=== PATIENT | male | born 1985 | race Caucasian/White ===

== ENCOUNTER 2018-03-16 20:12 | Emergency (ER) | payer OTHER ==
[2018-03-16] MEDS ORDERED: Ketorolac Tromethamine 30 MG/ML VIAL ONE (20:28)
[2018-03-16 20:51] LABS: #Eosinphils 0.1 thou/uL (0.0-0.7); #Lymphocytes 2.4 thou/uL (1.20-3.40); #Monocytes 0.6 thou/uL (0.11-0.59); #Neutrophils 9.7 thou/uL (1.40-6.50); %Basophils 0.1 % (0.0-1.0); %Eosinophils 0.8 % (0.0-10.0); %Lymphocytes 18.6 % (21.0-51.0); %Monocytes 4.4 % (0.0-10.0); Hemoglobin 15.6 g/dL (14.0-18.0); Mean Corpuscular HGB CONC 34.4 g/dL (32.0-36.0); Mean Corpuscular Hemoglobin 31.4 pg (27.0-31.0); Mean Corpuscular Volume 91.3 fL (78.0-98.0); Platelet Count 320 thou/uL (130-400); RBC Distribution Width 11.4 % (11.5-14.5); Red Blood Cell (RBC) Count 4.95 mill/uL (4.70-6.10); White Blood Cell (WBC) Count 12.7 thou/uL (4.8-10.8)
[2018-03-16] MEDS ORDERED: Ondansetron HCl/PF 4 MG/2 ML Vial ONE (21:06)
[2018-03-16 21:14] LABS: ALT (SGPT) 36 U/L (8-55); AST (SGOT) 21 U/L (5-34); Albumin 4.4 g/dL (3.5-5.0); Alkaline Phosphatase 64 U/L (40-150); Anion Gap 14 mmol/L (10-20); BUN (Urea Nitrogen) 15 mg/dL (8.9-20.6); Bilirubin, Total 0.3 mg/dL (0.2-1.2); Calc. Creatinine Clearance 0 mL/min (70-130); Calcium 9.2 mg/dL (7.8-10.44); Carbon Dioxide 22 mmol/L (22-29); Chloride 108 mmol/L (98-107); Estimated GFR-MDRD 82; Glucose 121 mg/dL (70-105); Lipase 30 U/L (8-78); Potassium 3.2 mmol/L (3.5-5.1); Protein, Total 7.4 g/dL (6.0-8.3); Sodium 141 mmol/L (136-145)
--- NOTE | 2018-03-16 21:21 | CT ---
NONCONTRAST ENHANCED CT IMAGES ABDOMEN AND PELVIS: HISTORY: A 32-year-old male. History of right lower and right upper quadrant abdominal pain. TECHNIQUE: Noncontrast enhanced CT images of the abdomen and pelvis were obtained. IV and oral contrast was not given. FINDINGS: Noncontrast enhanced CT images of the abdomen and pelvis demonstrate the lung bases to be unremarkabl e. No evidence of free intraperitoneal air is seen. The liver and spleen are unremarkable. The marin creas is unremarkable. The gallbladder is within normal limits. No dilated loops of small bowel see n. A normal appendix is visualized. There does appear to be some thickening of the ascending colon, the hepatic flexure, the transverse colon, and mild descending colonic thickening. This may represe nt changes of colitis. The left kidney contains an approximately 5 mm renal calculus in the lower po le of the left kidney. No evidence of left-sided hydronephrosis is seen. The right kidney demonstra chelo mild to moderate hydronephrosis with some edema surrounding the right renal pelvis and enveloping the right ureter. There is also mild perirenal fat stranding in the right kidney. Small, nonobstru cting calculi seen in the upper pole of the right kidney. There is a 2 mm renal calculus at the righ t ureterovesical junction. This is compatible with a distal right ureteral calculus or a right urete ral calculus that has passed into the urinary bladder. IMPRESSION: 1. Small distal right ureteral or intra-bladder calculus. 2. Some proximal and mid colonic thickening, concerning for colitis. POS: [facility]
[2018-03-16 21:24] LABS: Bilirubin Negative (Negative); Blood, Urine Small (Negative); Clarity CLEAR (Clear); Glucose, Urine (Dipstick) Negative (Negative); Leukocyte Negative (Negative); Nitrite Negative (Negative); Protein, Urine (Dipstick) Negative (Neg-Trace); Specific Gravity, Urine 1.016 (1.002-1.036); Urobilinogen 0.2 mg/dL (0.2-1.0); pH, Urine 5.5 (5.0-9.0)
[2018-03-16 21:26] LABS: Bacteria/HPF None Seen HPF (None Seen); Hyaline Casts/LPF 0-3 HYALINE CAST LPF (0-3 Hyaline); RBC/HPF 0-3 HPF (0-3); Squamous Epithelial None Seen HPF (0-3); WBC/HPF None Seen HPF (0-3)
[2018-03-16] MEDS ORDERED: Morphine 4 MG/ML VIAL ONE (21:48)
== END 2018-03-16 22:14 | disposition home or self-care (01) ==
LOC: ERS 20:12
DX: N20.2 Calculus of kidney with calculus of ureter (principal)
CPT/HCPCS: 36415; 74176; 80053; 81003; 81015; 83690; 85025; 96361; 96374; 96375; J1885; J2270; J2405